=== PATIENT | female | born 1975 | race Two or more races ===

== ENCOUNTER 2021-02-10 12:02 | Inpatient (IN) | payer BC, OTHER ==
[~2021-02-10] VITALS: Ht 170.2 cm; Wt 84.0 kg
[2021-02-10] MEDS ORDERED: AZITHROMYCIN 500MG/ 250ML 250 ML IV ONE (12:30)
[2021-02-10] MEDS ORDERED: DexAMETHasone SOD PHOS 10MG/1ML VIAL INJ IV ONE (12:30)
[2021-02-10] MEDS ORDERED: cefTRIAXone 1GM/50ML D5W 50 ML IV ONE (12:30)
[2021-02-10 13:28] LABS: Basophils # (auto) 0.1 10 ^3/uL (0-0.2); Basophils % (auto) 1.3 % (0.0-2.0); Eosinophils # (auto) 0.1 10 ^3/uL (0-0.8); Eosinophils % (auto) 1.5 % (0.0-7.0); Hematocrit 46.8 % (36.0-46.0); Hemoglobin 16.1 g/dL (12.2-16.2); Lymphocytes # (auto) 1.9 10 ^3/uL (0.4-5.4); Lymphocytes % (auto) 29.1 % (10.0-50.0); Mean Corpuscular Hemoglobin 30.2 pg (28.0-32.0); Mean Corpuscular Hgb Conc. 34.3 g/dL (32.0-36.0); Mean Corpuscular Volume 88.1 fL (80.0-100.0); Monocytes # (auto) 0.6 10 ^3/uL (0-1.3); Monocytes % (auto) 9.2 % (0.0-12.0); Neutrophils # (auto) 3.8 10 ^3/uL (1.6-8.6); Neutrophils % (auto) 58.9 % (37.0-80.0); Nucleated Red Blood Cells % 0.1 %; Red Blood Cells 5.31 10^6/uL (4.0-5.20); Red Cell Distribution Width 12.2 % (11.8-14.3); White Blood Cell 6.5 10^3/uL (4.4-10.8)
[2021-02-10 13:47] LABS: Alanine Aminotransferase 47 U/L (13-56); Albumin 2.9 g/dL (3.4-5.0); Anion Gap 12 (5-15); Blood Urea Nitrogen 24 mg/dL (7-18); CRP High Sensitivity 0.46 mg/dL (< 0.3); Calcium 8.6 mg/dL (8.5-10.1); Carbon Dioxide 23 mmol/L (21-32); Chloride 99 mmol/L (98-107); Glucose 342 mg/dL (74-106); Potassium 3.5 mmol/L (3.5-5.1); Sodium 134 mmol/L (136-145)
[2021-02-10 13:52] LABS: Alkaline Phosphatase 95 U/L (45-117); Aspartate Aminotransferase 19 U/L (15-37); BUN/Creatinine Ratio 26.7; Bilirubin, Total 1.2 mg/dL (0.2-1.0); GFR African American 87 mL/min; GFR Non-African American 72 mL/min; Total Protein 6.7 g/dL (6.4-8.2)
[2021-02-10] MEDS ORDERED: guaiFENesin-DM 100/10mg/5ml SYR PO PRN (17:00)
[2021-02-10] MEDS ORDERED: ACETAMINOPHEN 500 MG TAB PO PRN (17:00)
[2021-02-10] MEDS ORDERED: NITROGLYCERIN 0.4 MG SL TAB SL PRN (17:00)
[2021-02-10] MEDS ORDERED: MORPHINE SULFATE INJECTION 2 MG/ML SYRG IV PRN (17:00)
[2021-02-10 17:56] LABS: Urine Bacteria FEW /hpf (None Seen); Urine Blood Negative /uL (Negative); Urine Mucus FEW (None Seen); Urine WBC 3 /hpf (0 - 5)
[2021-02-10] MEDS: BUDESONIDE (INHALATION) 180 MCG IH IN SCH (19:10)
[2021-02-10] MEDS: ALBUTEROL SULF HFA 90MCG INH 200DOSE IN PRN (19:29)
[2021-02-10 20:29] VITALS: BP 91/53
[2021-02-10] MEDS: ENOXAPARIN SOD 40 MG/0.4 ML SYRINGE SC SCH (21:58)
[2021-02-10 22:00] VITALS: BP 102/67
[2021-02-10 23:51] VITALS: BP 102/67
[2021-02-11] MEDS ORDERED: VORT10TA PO (03:04)
[2021-02-11] MEDS ORDERED: LIDO5DIS21 TOP (03:04)
[2021-02-11 05:00] VITALS: BP 113/78
[2021-02-11] MEDS: ACETAMINOPHEN 325 MG TAB PO PRN (05:53)
[2021-02-11] MEDS: ALBUTEROL SULF HFA 90MCG INH 200DOSE IN PRN ×2 (06:57→19:21)
[2021-02-11] MEDS: BUDESONIDE (INHALATION) 180 MCG IH IN SCH ×2 (06:57→19:21)
[2021-02-11 08:34] VITALS: BP 121/83
[2021-02-11] MEDS ORDERED: IVERMECTIN 3 MG TAB PO SCH (10:00)
[2021-02-11] MEDS ORDERED: AZITHROMYCIN 500MG/ 250ML 250 ML IV SCH (10:00)
[2021-02-11] MEDS ORDERED: REMDESIVIR PER PHARMACY 0 ML IV SCH (10:45)
[2021-02-11] MEDS: DexAMETHasone SOD PHOS 10MG/1ML VIAL INJ IV SCH (11:11)
[2021-02-11] MEDS: ZINC SULFATE 220mg CAP or TAB PO SCH (11:12)
[2021-02-11] MEDS: ASCORBIC ACID 1,000 MG TAB PO SCH (11:13)
[2021-02-11] MEDS: CHOLECALCIFEROL (VITD3) 2,000 UNIT CAP/TAB PO SCH (11:13)
[2021-02-11] MEDS: ENOXAPARIN SOD 40 MG/0.4 ML SYRINGE SC SCH ×2 (11:13→22:00)
[2021-02-11 13:00] VITALS: BP 107/68
[2021-02-11] MEDS ORDERED: REMDESIVIR 200 MG in NS 210ml LOADING DOSE ADULT IV ONE (15:00)
[2021-02-11 16:43] VITALS: BP 106/64
[2021-02-11] MEDS ORDERED: DEXTROSE (50%) 50ML SYRG IV PRN (17:00)
[2021-02-11] MEDS ORDERED: guaiFENesin-DM 100/10mg/5ml SYR PO PRN (17:00)
[2021-02-11] MEDS ORDERED: InsuLIN REG 1unit/0.01ml Soln (100units/ml) SC SCH (18:00)
[2021-02-11] MEDS: ACCU-CHEK COMFORT CURVE STRIP VI SCH (18:15)
[2021-02-11 20:08] LABS: Calcium 8.6 mg/dL (8.5-10.1); Potassium 3.9 mmol/L (3.5-5.1)
[2021-02-11 20:48] LABS: BUN/Creatinine Ratio 19.5
[2021-02-11] MEDS ORDERED: InsuLIN REG 1unit/0.01ml Soln (100units/ml) IV ONE (21:15)
[2021-02-11 22:00] VITALS: BP 107/69
[2021-02-11] MEDS ORDERED: INSULIN LANTUS (GLARGINE) 1 /0.01ml (100units/ml) SC SCH (22:00)
[2021-02-12 05:00] VITALS: BP 115/45
[2021-02-12 05:41] LABS: Basophils # (auto) 0 10 ^3/uL (0-0.2); Basophils % (auto) 0.3 % (0.0-2.0); Eosinophils # (auto) 0 10 ^3/uL (0-0.8); Eosinophils % (auto) 0.2 % (0.0-7.0); Hematocrit 43.8 % (36.0-46.0); Hemoglobin 15.2 g/dL (12.2-16.2); Lymphocytes # (auto) 1.4 10 ^3/uL (0.4-5.4); Lymphocytes % (auto) 12.2 % (10.0-50.0); Mean Corpuscular Hemoglobin 30.7 pg (28.0-32.0); Mean Corpuscular Hgb Conc. 34.7 g/dL (32.0-36.0); Mean Corpuscular Volume 88.4 fL (80.0-100.0); Monocytes # (auto) 0.7 10 ^3/uL (0-1.3); Monocytes % (auto) 6.1 % (0.0-12.0); Neutrophils # (auto) 9.6 10 ^3/uL (1.6-8.6); Neutrophils % (auto) 81.2 % (37.0-80.0); Red Blood Cells 4.96 10^6/uL (4.0-5.20); Red Cell Distribution Width 12.6 % (11.8-14.3); White Blood Cell 11.8 10^3/uL (4.4-10.8)
[2021-02-12] MEDS: ACCU-CHEK COMFORT CURVE STRIP VI SCH ×5 (05:58→23:45)
[2021-02-12] MEDS: InsuLIN REG 1unit/0.01ml Soln (100units/ml) SC SCH ×5 (05:58→23:45)
[2021-02-12 06:00] LABS: Potassium 3.1 mmol/L (3.5-5.1)
[2021-02-12 06:12] LABS: Albumin 3.1 g/dL (3.4-5.0); BUN/Creatinine Ratio 23.9; Bilirubin, Total 1.1 mg/dL (0.2-1.0); CRP High Sensitivity 0.47 mg/dL (< 0.3); Calcium 8.8 mg/dL (8.5-10.1); Magnesium 2.8 mg/dL (1.6-2.6); Total Protein 6.6 g/dL (6.4-8.2)
[2021-02-12] MEDS: BUDESONIDE (INHALATION) 180 MCG IH IN SCH ×2 (06:24→22:15)
[2021-02-12] MEDS: ALBUTEROL SULF HFA 90MCG INH 200DOSE IN PRN ×2 (06:24→22:15)
[2021-02-12 09:28] VITALS: BP 100/67
[2021-02-12] MEDS: DexAMETHasone SOD PHOS 10MG/1ML VIAL INJ IV SCH (10:05)
[2021-02-12] MEDS: ZINC SULFATE 220mg CAP or TAB PO SCH (10:06)
[2021-02-12] MEDS: ASCORBIC ACID 1,000 MG TAB PO SCH (10:06)
[2021-02-12] MEDS: CHOLECALCIFEROL (VITD3) 2,000 UNIT CAP/TAB PO SCH (10:06)
[2021-02-12] MEDS: AZITHROMYCIN 250 MG TAB PO SCH (10:06)
[2021-02-12] MEDS: ENOXAPARIN SOD 40 MG/0.4 ML SYRINGE SC SCH ×2 (10:07→22:26)
[2021-02-12 12:28] VITALS: BP 106/66
[2021-02-12] MEDS ORDERED: POTASSIUM CHL 20 Meq TABLET PO ONE (14:15)
[2021-02-12] MEDS: REMDESIVIR 100mg 100 MG in SODIUM CHL 0.9% 230 ML IV SCH (15:03)
[2021-02-12 17:15] VITALS: BP 104/68
[2021-02-12 22:00] VITALS: BP 105/60
[2021-02-12] MEDS: INSULIN LANTUS (GLARGINE) 1 /0.01ml (100units/ml) SC SCH (22:00)
[2021-02-12] MEDS: FAMOTIDINE 20 MG TAB PO SCH (22:26)
[2021-02-13 05:00] VITALS: BP 98/68
[2021-02-13] MEDS: ACCU-CHEK COMFORT CURVE STRIP VI SCH ×3 (05:50→18:15)
[2021-02-13] MEDS: InsuLIN REG 1unit/0.01ml Soln (100units/ml) SC SCH ×3 (05:50→18:15)
[2021-02-13 05:51] LABS: Basophils # (auto) 0 10 ^3/uL (0-0.2); Basophils % (auto) 0.4 % (0.0-2.0); Eosinophils # (auto) 0 10 ^3/uL (0-0.8); Eosinophils % (auto) 0.1 % (0.0-7.0); Hematocrit 41.8 % (36.0-46.0); Hemoglobin 14.6 g/dL (12.2-16.2); Lymphocytes # (auto) 1.6 10 ^3/uL (0.4-5.4); Lymphocytes % (auto) 16.4 % (10.0-50.0); Mean Corpuscular Hemoglobin 31.3 pg (28.0-32.0); Mean Corpuscular Hgb Conc. 34.8 g/dL (32.0-36.0); Mean Corpuscular Volume 89.9 fL (80.0-100.0); Monocytes # (auto) 0.5 10 ^3/uL (0-1.3); Monocytes % (auto) 5.3 % (0.0-12.0); Neutrophils # (auto) 7.4 10 ^3/uL (1.6-8.6); Neutrophils % (auto) 77.8 % (37.0-80.0); Nucleated Red Blood Cells % 0.1 %; Red Blood Cells 4.65 10^6/uL (4.0-5.20); Red Cell Distribution Width 12.3 % (11.8-14.3); White Blood Cell 9.5 10^3/uL (4.4-10.8)
[2021-02-13 06:58] LABS: Potassium 3.5 mmol/L (3.5-5.1)
[2021-02-13] MEDS: ALBUTEROL SULF HFA 90MCG INH 200DOSE IN PRN (06:59)
[2021-02-13] MEDS: BUDESONIDE (INHALATION) 180 MCG IH IN SCH ×2 (06:59→21:07)
[2021-02-13 07:07] LABS: Albumin 2.8 g/dL (3.4-5.0); BUN/Creatinine Ratio 35.2; Calcium 8.8 mg/dL (8.5-10.1)
[2021-02-13 07:13] LABS: Bilirubin, Total 0.8 mg/dL (0.2-1.0); Total Protein 6.1 g/dL (6.4-8.2)
[2021-02-13 09:00] VITALS: BP 105/58
[2021-02-13] MEDS: CHOLECALCIFEROL (VITD3) 2,000 UNIT CAP/TAB PO SCH (09:22)
[2021-02-13] MEDS: FAMOTIDINE 20 MG TAB PO SCH ×2 (09:22→21:17)
[2021-02-13] MEDS: ENOXAPARIN SOD 40 MG/0.4 ML SYRINGE SC SCH ×2 (09:23→21:17)
[2021-02-13] MEDS: AZITHROMYCIN 250 MG TAB PO SCH (09:23)
[2021-02-13] MEDS: ZINC SULFATE 220mg CAP or TAB PO SCH (09:23)
[2021-02-13] MEDS: ASCORBIC ACID 1,000 MG TAB PO SCH (09:23)
[2021-02-13] MEDS: DexAMETHasone SOD PHOS 10MG/1ML VIAL INJ IV SCH (09:23)
[2021-02-13 13:00] VITALS: BP 101/57
[2021-02-13] MEDS: REMDESIVIR 100mg 100 MG in SODIUM CHL 0.9% 230 ML IV SCH (15:42)
[2021-02-13 17:00] VITALS: BP 97/68
[2021-02-13 18:28] VITALS: BP 97/68
[2021-02-13] MEDS: INSULIN LANTUS (GLARGINE) 1 /0.01ml (100units/ml) SC SCH (21:15)
[2021-02-13 21:31] VITALS: BP 109/71
[2021-02-14] MEDS: ACETAMINOPHEN 325 MG TAB PO PRN ×2 (00:19→11:52)
[2021-02-14] MEDS: ACCU-CHEK COMFORT CURVE STRIP VI SCH ×4 (00:25→17:15)
[2021-02-14] MEDS: InsuLIN REG 1unit/0.01ml Soln (100units/ml) SC SCH ×4 (00:28→17:16)
[2021-02-14 05:30] VITALS: BP 101/77
[2021-02-14 06:45] LABS: Basophils # (auto) 0.1 10 ^3/uL (0-0.2); Basophils % (auto) 0.8 % (0.0-2.0); Eosinophils # (auto) 0 10 ^3/uL (0-0.8); Eosinophils % (auto) 0.1 % (0.0-7.0); Hematocrit 46.6 % (36.0-46.0); Hemoglobin 15.7 g/dL (12.2-16.2); Lymphocytes # (auto) 2.4 10 ^3/uL (0.4-5.4); Mean Corpuscular Hemoglobin 30.5 pg (28.0-32.0); Mean Corpuscular Hgb Conc. 33.6 g/dL (32.0-36.0); Mean Corpuscular Volume 90.9 fL (80.0-100.0); Monocytes # (auto) 0.6 10 ^3/uL (0-1.3); Monocytes % (auto) 6.1 % (0.0-12.0); Neutrophils # (auto) 7.2 10 ^3/uL (1.6-8.6); Nucleated Red Blood Cells % 0.1 %; Red Blood Cells 5.13 10^6/uL (4.0-5.20); Red Cell Distribution Width 12.7 % (11.8-14.3); White Blood Cell 10.2 10^3/uL (4.4-10.8)
[2021-02-14 07:06] LABS: Potassium 3.3 mmol/L (3.5-5.1)
[2021-02-14 07:15] LABS: Albumin 2.9 g/dL (3.4-5.0); BUN/Creatinine Ratio 29.6; Calcium 8.9 mg/dL (8.5-10.1); Magnesium 2.5 mg/dL (1.6-2.6)
[2021-02-14 07:17] LABS: Bilirubin, Total 1.1 mg/dL (0.2-1.0); Total Protein 6.4 g/dL (6.4-8.2)
[2021-02-14] MEDS ORDERED: Glucerna Carbsteady SHAKE Vanilla 8oz PO SCH (08:00)
[2021-02-14] MEDS: BUDESONIDE (INHALATION) 180 MCG IH IN SCH ×2 (08:01→19:13)
[2021-02-14] MEDS: ALBUTEROL SULF HFA 90MCG INH 200DOSE IN PRN ×2 (08:01→19:13)
[2021-02-14 09:00] VITALS: BP 101/64
[2021-02-14] MEDS: DexAMETHasone SOD PHOS 10MG/1ML VIAL INJ IV SCH (09:17)
[2021-02-14] MEDS: ZINC SULFATE 220mg CAP or TAB PO SCH (09:18)
[2021-02-14] MEDS: FAMOTIDINE 20 MG TAB PO SCH ×2 (09:18→22:30)
[2021-02-14] MEDS: ASCORBIC ACID 1,000 MG TAB PO SCH (09:18)
[2021-02-14] MEDS: CHOLECALCIFEROL (VITD3) 2,000 UNIT CAP/TAB PO SCH (09:18)
[2021-02-14] MEDS: AZITHROMYCIN 250 MG TAB PO SCH (09:19)
[2021-02-14] MEDS: ENOXAPARIN SOD 40 MG/0.4 ML SYRINGE SC SCH ×2 (09:19→22:30)
[2021-02-14 13:00] VITALS: BP 103/72
[2021-02-14] MEDS ORDERED: POTASSIUM CHL 10 Meq TABLET PO ONE (14:15)
[2021-02-14] MEDS: REMDESIVIR 100mg 100 MG in SODIUM CHL 0.9% 230 ML IV SCH (15:14)
[2021-02-14 17:00] VITALS: BP 96/61
[2021-02-14 22:00] VITALS: BP 97/65
[2021-02-14] MEDS: INSULIN LANTUS (GLARGINE) 1 /0.01ml (100units/ml) SC SCH (22:26)
[2021-02-15] MEDS: InsuLIN REG 1unit/0.01ml Soln (100units/ml) SC SCH ×5 (00:13→23:53)
[2021-02-15] MEDS: ACCU-CHEK COMFORT CURVE STRIP VI SCH ×5 (00:14→23:51)
[2021-02-15 05:00] VITALS: BP 96/57
[2021-02-15 05:39] LABS: Albumin 2.5 g/dL (3.4-5.0); Calcium 8.6 mg/dL (8.5-10.1)
[2021-02-15 05:42] LABS: BUN/Creatinine Ratio 34.8; Bilirubin, Total 0.6 mg/dL (0.2-1.0); Potassium 3.4 mmol/L (3.5-5.1); Total Protein 5.5 g/dL (6.4-8.2)
[2021-02-15] MEDS: BUDESONIDE (INHALATION) 180 MCG IH IN SCH ×2 (06:32→22:28)
[2021-02-15] MEDS: ALBUTEROL SULF HFA 90MCG INH 200DOSE IN PRN ×2 (06:32→22:28)
[2021-02-15 09:00] VITALS: BP 103/58
[2021-02-15] MEDS: DexAMETHasone SOD PHOS 10MG/1ML VIAL INJ IV SCH (09:26)
[2021-02-15] MEDS: ASCORBIC ACID 1,000 MG TAB PO SCH (09:27)
[2021-02-15] MEDS: TRINTELLIX PO SCH (09:27)
[2021-02-15] MEDS: FAMOTIDINE 20 MG TAB PO SCH ×2 (09:27→22:25)
[2021-02-15] MEDS: ZINC SULFATE 220mg CAP or TAB PO SCH (09:27)
[2021-02-15] MEDS: [UNRECOGNIZED DRUG - OTHER] PO SCH (09:27)
[2021-02-15] MEDS: AZITHROMYCIN 250 MG TAB PO SCH (09:28)
[2021-02-15] MEDS: ENOXAPARIN SOD 40 MG/0.4 ML SYRINGE SC SCH ×2 (09:28→22:25)
[2021-02-15] MEDS: CHOLECALCIFEROL (VITD3) 2,000 UNIT CAP/TAB PO SCH (09:28)
[2021-02-15] MEDS ORDERED: PATIENTS OWN MEDICATION PO SCH (10:00)
[2021-02-15] MEDS ORDERED: DEX4T PO (10:39)
[2021-02-15] MEDS ORDERED: FAMO20TA10 PO (10:39)
[2021-02-15] MEDS ORDERED: ALBUAER3 IN (10:39)
[2021-02-15] MEDS ORDERED: ZINC220T6 PO (10:39)
[2021-02-15] MEDS ORDERED: ASCO10003 PO (10:39)
[2021-02-15] MEDS ORDERED: BUDE2SUS3 IN (10:39)
[2021-02-15] MEDS ORDERED: INSLANTI SC (10:39)
[2021-02-15] MEDS ORDERED: CHOL20007 PO (10:39)
[2021-02-15] MEDS ORDERED: ASPI-378 PO (10:39)
[2021-02-15] MEDS ORDERED: ATOR10TA PO (10:43)
[2021-02-15] MEDS ORDERED: POTASSIUM CHL 20 Meq TABLET PO ONE (10:45)
[2021-02-15 13:00] VITALS: BP 97/67
[2021-02-15] MEDS: REMDESIVIR 100mg 100 MG in SODIUM CHL 0.9% 230 ML IV SCH (15:47)
[2021-02-15 17:00] VITALS: BP 108/67
[2021-02-15 22:00] VITALS: BP 102/67
[2021-02-15] MEDS: INSULIN LANTUS (GLARGINE) 1 /0.01ml (100units/ml) SC SCH (22:23)
[2021-02-16 05:00] VITALS: BP 101/65
[2021-02-16] MEDS: InsuLIN REG 1unit/0.01ml Soln (100units/ml) SC SCH ×2 (05:30→12:50)
[2021-02-16] MEDS: ACCU-CHEK COMFORT CURVE STRIP VI SCH ×2 (05:30→12:49)
[2021-02-16] MEDS: BUDESONIDE (INHALATION) 180 MCG IH IN SCH (06:42)
[2021-02-16] MEDS: ALBUTEROL SULF HFA 90MCG INH 200DOSE IN PRN (06:42)
[2021-02-16 08:54] VITALS: BP 97/70
[2021-02-16] MEDS: FAMOTIDINE 20 MG TAB PO SCH (09:06)
[2021-02-16] MEDS: ASCORBIC ACID 1,000 MG TAB PO SCH (09:06)
[2021-02-16] MEDS: TRINTELLIX PO SCH (09:06)
[2021-02-16] MEDS: [UNRECOGNIZED DRUG - OTHER] PO SCH (09:06)
[2021-02-16] MEDS: DexAMETHasone SOD PHOS 10MG/1ML VIAL INJ IV SCH (09:06)
[2021-02-16] MEDS: CHOLECALCIFEROL (VITD3) 2,000 UNIT CAP/TAB PO SCH (09:07)
[2021-02-16] MEDS: ENOXAPARIN SOD 40 MG/0.4 ML SYRINGE SC SCH (09:07)
[2021-02-16] MEDS: ZINC SULFATE 220mg CAP or TAB PO SCH (10:00)
[2021-02-16 13:01] VITALS: BP 115/75
== END 2021-02-16 14:10 | disposition home or self-care (01) | DRG 177 ==
LOC: ER 12:02 → TELE 16:51 → ER 21:24 → TELE-EAST 21:27
PROVIDERS: ADMIT Nurse Practitioner Acute Care; ATTEND Internal Medicine
PROC: XW033E5 Introduction of Remdesivir Anti-infective into Peripheral Vein, Percutaneous Approach, New Technology Group 5 (ICD-10-PCS; principal; 2021-02-11)
DX: U07.1 COVID-19 (principal); J12.82 Pneumonia due to coronavirus disease 2019; J44.0 Chronic obstructive pulmonary disease with (acute) lower respiratory infection; J44.1 Chronic obstructive pulmonary disease with (acute) exacerbation; D89.839 Cytokine release syndrome, grade unspecified; E11.40 Type 2 diabetes mellitus with diabetic neuropathy, unspecified; E11.65 Type 2 diabetes mellitus with hyperglycemia; E55.9 Vitamin D deficiency, unspecified; E78.00 Pure hypercholesterolemia, unspecified; E78.5 Hyperlipidemia, unspecified; E87.6 Hypokalemia; F32.9 Major depressive disorder, single episode, unspecified; K76.0 Fatty (change of) liver, not elsewhere classified; T38.0X5A Adverse effect of glucocorticoids and synthetic analogues, initial encounter; Z79.84 Long term (current) use of oral hypoglycemic drugs
CPT/HCPCS: 36415; 71045; 76705; 80048; 80053; 80061; 81001; 82306; 82728; 82962; 83036; 83605; 83615; 83735; 83880; 84443; 84484; 84702; 85025; 85379; 86141; 87040; 87081; 87426; 94640; 96365; 96368; 96375; 99291; G0378; J0696; J1100; J1815